=== PATIENT | male | born 1935 | race Caucasian/White ===

== ENCOUNTER 2019-04-05 14:50 | Inpatient (IN) ==
[2019-04-05 15:25] LABS: BASO# 0.01 X1000 (0.0-0.2); BASO% 0.1 % (0.0-0.8); EOS# 0.06 X1000 (0.0-0.7); EOS% 0.9 % (0.0-10.0); HEMATOCRIT 35.6 % (42.0-52.0); HEMOGLOBIN 12.1 g/dL (14.0-18.0); IMM GRAN# 0.01 X1000 (0.0-0.04); IMM GRAN% 0.1 % (0.0-0.5); LYMPH# 0.77 X1000 (1.2-3.4); LYMPH% 11.1 % (20.5-51.1); MCH 30.1 PG (27-31); MCV 88.6 FL (81-99); MONO# 0.65 X1000 (0.11-0.59); MONO% 9.4 % (1.7-9.3); NEUT# 5.44 X1000 (1.4-6.5); NEUT% 78.4 % (42.2-75.2); PLT 175 X1000 (130-400); RBC 4.02 XMIL (4.7-6.1); RDW 13.1 % (11.5-14.5); WBC 6.94 X1000 (4.8-10.8)
[2019-04-05 15:31] LABS: INFLUENZA A NEGATIVE (NEGATIVE); INFLUENZA B NEGATIVE (NEGATIVE)
[2019-04-05 15:53] LABS: ALBUMIN 3.9 g/dL (3.5-5.0); CREATININE 1.2 mg/dL (0.7-1.2); POTASSIUM 4.1 mmol/L (3.5-5.1); TOTAL BILIRUBIN 0.7 mg/dL (0.20-1.00); TOTAL PROTEIN 6.7 g/dL (6.3-8.3)
--- NOTE | 2019-04-05 16:04 | Diag Imaging Result Doc PS360 ---
EXAM: CT HEAD W/O CONTRAST 04/05/2019 HISTORY: confusion TECHNIQUE: This exam was performed using automated exposure control, adjustment of mA or kV according to patient size, and/or use of iterative reconstruction technique. COMMENT: There are no previous studies. There are calcifications in the vertebral and internal carotid arteries bilaterally. There are some calcifications in the basal ganglia. There is a moderate degree of cerebral atrophy. There is ill-defined lucency in the periventricular white matter both hemispheres and in the external capsule regions. There is a lacunar lucency present in the right duran radiata. There is no evidence of mass effect bleed or abnormal extra-axial fluid collection. The visualized paranasal sinuses are clear. The calvarium is intact. IMPRESSION: Chronic ischemic changes. No evidence of acute disease. Electronically signed by Ruel Mcgovern 04/05/2019 4:01 PM
--- NOTE | 2019-04-05 16:13 | Diag Imaging Result Doc PS360 ---
EXAM: CHEST-2 VIEWS 04/05/2019 HISTORY: cough TECHNIQUE: PA and lateral chest COMMENT: There are sternotomy wires. The inspiration is suboptimal. There is no evidence of acute pulmonary disease. Heart size is enlarged. IMPRESSION: Cardiomegaly. Electronically signed by Ruel Mcgovern 04/05/2019 4:10 PM
[2019-04-05] MEDS ORDERED: NS 1,000 ML IV ONE ×2 (16:30→20:03)
--- NOTE | 2019-04-05 18:12 | EKG Report ---
Test Performed on : 04/05/2019 3:02:43 PM Test Reason : weakness Blood Pressure : / mmHG Vent. Rate : 070 BPM Atrial Rate : 070 BPM P-R Int : 224 ms QRS Dur : 094 ms QT Int : 388 ms P-R-T Axes : 037 -07 -07 degrees QTc Int : 419 ms Sinus rhythm. with 1st degree AV block. Incomplete right bundle branch block Nonspecific T wave abnormality Abnormal ECG When compared with ECG of 28-NOV-2009 17:12, CO interval has increased Incomplete right bundle branch block is now present Unconfirmed Result
[2019-04-05 18:41] LABS: UR EPITHELIAL CELLS <10 /HPF (<10); URINE BACTERIA NEGATIVE /HPF; URINE RBC TNTC /HPF (<10); URINE SOURCE CATH; URINE WBC <10 /HPF (<10)
[2019-04-05] MEDS ORDERED: ZOSYN 3.375 GM in NS 50 ML IV ONE (18:42)
[2019-04-05 18:45] LABS: COLOR ORANGE
[2019-04-05 18:46] LABS: BILIRUBIN URINE NEGATIVE (NEGATIVE); BLOOD URINE MODERATE (NEGATIVE); GLUCOSE URINE NEGATIVE (NEGATIVE); KETONE URINE TRACE mg/dL (NEGATIVE); PROTEIN URINE 30 mg/dL (NEGATIVE); TURBIDITY URINE HAZY (CLEAR); UROBILINOGEN URINE NORMAL (NORMAL)
--- NOTE | 2019-04-05 18:46 | PROVIDER DOCUMENTATION ---
This chart was entered by Mita Silvestre Scribe, acting as scribe for Paul Arana MD. HPI-General Adult - General Chief Complaint: Weakness Stated Complaint: weakness Time Seen by Provider: 04/05/19 15:00 Source: patient, family ( and son) Allergies/Adverse Reactions: Patient Allergies Allergy/AdvReac Type Severity Reaction Status Date / Time morphine Allergy Unknown Verified 04/05/19 14:57 Home Medications: Home Medication List Medication Instructions Recorded Confirmed Last Taken Type Aspirin 81 mg PO DAILY 04/02/19 04/05/19 Unknown History Atorvastatin Calcium [Lipitor] 40 mg PO DAILY 04/02/19 04/05/19 Unknown History Cholecalciferol (Vitamin D3) 4,000 units PO DAILY 04/02/19 04/05/19 Unknown History [Vitamin D3] Hydrochlorothiazide 12.5 mg PO DAILY 04/05/19 04/05/19 Unknown History - History of Present Illness -Gen Adult Nature of Presenting Problems: 83yom presents to ED by EMS cc fever, cough and AMS according to and son who are at bedside. Son reports pt fell 04/02/2019, came to ED for injuries and all checked out ok but pt mental state has declined since the fall. reports pt has been getting more weak since the fall. Pt is A&Ox3 and denies pain upon exam. Pt has no dx hx of dementia. Location of Pain/Injury: reports: none Pain Radiation: reports: no radiation Quality of Pain: reports: none Severity: reports: mild, moderate Onset/Duration: reports: 3 days ago Timing: reports: changing over time Context/Activities at Onset: reports: recent trauma history (fell on 04/02/2019) Modifying Factors: improves with: nothing Associated Symptoms: reports: cough, fatigue, fever/chills, weakness Similar Symptoms Previously?: No Recently seen or treated by another doctor?: Yes (seen in ED 04/02/2019) Review of Systems - Adult - REVIEW OF SYSTEMS - ADULT ROS:: ROS per family ( and son) Constitutional: reports: see HPI, fever, fatique. denies: chills Eyes: reports: no symptoms reported Ears, Nose, Mouth & Throat: reports: no symptoms reported Cardiovascular: reports: no symptoms reported Respiratory: reports: see HPI, cough. denies: shortness of breath, wheezing Gastrointestinal: reports: see HPI. denies: diarrhea, nausea, vomiting Genitourinary: reports: see HPI. denies: dysuria, hematuria Musculoskeletal: reports: no symptoms reported Integumentary: reports: no symptoms reported Neurological: reports: see HPI, other (AMS) Psychiatric: reports: no symptoms reported Endocrine: reports: no symptoms reported Hematologic/Lymphatic: reports: no symptoms reported Allergic/Immunologic: reports: no symptoms reported All Other Systems: Reviewed and Negative Past History - Adult - PAST MEDICAL HISTORY-ADULT Review of Records: reports: Old Records Reviewed, Nursing Assessment Review, Me dications Reviewed, Social history reviewed & non-contributory. Major Childhood Illnesses: reports: denies history Cardiovascular: reports: denies history Respiratory: reports: denies history Gastrointestinal: reports: denies history Obstetrical/Gynecological: reports: denies history Genitourinary: reports: denies history Musculoskeletal: reports: denies history Neurological: reports: denies history Endocrine/Immune: reports: denies history Other Conditions: reports: denies history - IMMUNIZATION STATUS Childhood Immunizations: See Nurse Assessment Flu Vaccine: See Nurse Assessment - FAMILY HISTORY Family History: reviewed, not pertinent - SOCIAL HISTORY Smoking: denies Physical Exam-General - PHYSICAL EXAM-ADULT Initial Vital Signs Reviewed: Yes - CONSTITUTIONAL General Appearance: appears well, alert, no apparent distress. negative: anxious, combative - EYES Eyes: PERRL/EOMI, pink conjunctivae. negative: photophobia - HEAD, EARS, NOSE, MOUTH & THROAT HENMT: normocephalic/atraumatic, moist mucous membranes, normal ENT inspection, hearing deficit. negative: angioedema - NECK Neck: non-tender, supple. negative: C-spine tenderness - RESPIRATORY Respiratory: chest non-tender, lungs clear, normal breath sounds, no pleuratic chest pain, no respiratory distress, no accessory muscle use. negative: crackles, rales, rhonchi, stridor, wheezing - CARDIOVASCULAR Cardiovascular: normal peripheral pulses, regular rate, rhythm, no edema, no gal lop, no JVD, no murmur. negative: bradycardia, tachycardia - GASTROINTESTINAL (ABDOMEN) Abdominal Exam: normal bowel sounds, non tender, soft. negative: guarding, rigid - LYMPHATIC Lymphatic: no adenopathy. negative: enlargement, striations - MUSCULOSKELETAL Extremity: normal range of motion, non-tender, normal inspection, no calf tenderness, normal capillary refill, pelvis stable. negative: deformity, swelling, tenderness - SKIN Integumentary: normal color, normal turgor, warm/dry. 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 negative: facial droop, focal weakness - PSYCHIATRIC Psych/Mental Status: normal mood/affect, oriented x 3. negative: anxious, di sheveled Progress - PLAN OF CARE/RESULTS Progress/Plan/Lab Results: Vital Signs - 8 hr 04/05/19 14:52 Temperature 100.3 F H Pulse Rate 74 Respiratory Rate 14 Blood Pressure 150/78 O2 Sat by Pulse Oximetry 96 Laboratory Results - last 24 hr 04/05/19 15:15 WBC 6.94 RBC 4.02 L Hgb 12.1 L Hct 35.6 L MCV 88.6 MCH 30.1 MCHC 34.0 RDW Std Deviation 13.1 Plt Count 175 MPV 10.0 Immature Gran % (Auto) 0.1 Neut % (Auto) 78.4 H Lymph % (Auto) 11.1 L Ashley % (Auto) 9.4 H Eos % (Auto) 0.9 Baso % (Auto) 0.1 Immature Gran # (Auto) 0.01 Neut # (Auto) 5.44 Lymph # (Auto) 0.77 L Ashley # (Auto) 0.65 H Eos # (Auto) 0.06 Baso # (Auto) 0.01 Orders Category Date Time Status CBC WITH ELECTRONIC DIFF [HEME] Stat Lab 04/05/19 15:15 Completed COMPREHENSIVE METABOLIC PANEL [CHEM] Stat Lab 04/05/19 15:15 Received Flu [INFLUENZA SCREEN PL] Stat Lab 04/05/19 14:58 Received URINALYSIS [URINALYSIS] Stat Lab 04/05/19 15:04 Uncollected Generalized Adult Illness >60 Stat Oth 04/05/19 15:03 Ordered EKG [EKG] Stat Ther 04/05/19 15:04 Ordered Result Diagrams: 04/05/19 15:15 04/05/19 15:15 - EKG 1 Time of EKG reading by physician:: 15:02 EKG Read and Signed by:: Paul Arana EKG Interpretation (*Must complete 3 of following elements*): Abnormal (nonspecific T wave abnormality) Rate: 70 Rhythm: sinus w/ 1st degree AV block QRS: RBB (incomplete) TN Interval: normal - XRAY 1 XRAY: Bilateral XRAY Study: Chest Impression: See EMR Report (IMPRESSION: Cardiomegaly. Electronically signed by Ruel Mcgovern 04/05/2019 4:10 PM) - CT/MRI 1 CT Study: Head Impression: See EMR Report (IMPRESSION: Chronic ischemic changes. No evidence of acute disease. Electronically signed by Ruel Mcgovern 04/05/2019 4:01 PM) - CONSULTS/PCP/HOSPITALIST Notification #1 *Consult/PCP/Hospitalist*: Dr. Centeno Time Discussed: 16:24 Consult Disposition: Will see in ED Departure - Departure Date of Disposition Decision: 04/05/19 Time of Disposition Decision: 18:45 DIAGNOSIS: Fever, Delirium Disposition: ADMITTED INPATIENT 09 Certified Medical Emergency: Emergent Condition: Stable Referrals and Follow-Ups: Gray Monroy DO [Primary Care Provider] - - Critical Care Note This patient required my direct & personal management of CC.: No Attestation - Physician/ JAMES Attestation Patient care was provided by Advanced Practice Provider:: No The physician spent face to face time with patient:: Yes Advanced Practice Provider documentation review:: Supervising physician onsite and consulted in the evaluation and care of this patient. The physician did have a face to face encounter with the patient. This chart was documented by the indicated scribe, (Mita Silvestre Scribe) and accurately reflects the services I performed and decisions made by me, Paul Arana MD, as attested by the provider's signature.
[2019-04-05 18:47] LABS: LEUKOCYTES URINE NEGATIVE (NEGATIVE); NITRITE URINE NEGATIVE (NEGATIVE)
[2019-04-05] MEDS: ZOSYN 3.375 GM in NS 50 ML IV SCH (18:54)
[2019-04-05] MEDS ORDERED: ZOSYN 2.25 GM in NS 50 ML IV SCH (19:00)
[2019-04-06] MEDS: ZOSYN 3.375 GM in NS 50 ML IV SCH ×4 (00:40→23:30)
[2019-04-06] MEDS: TYLENOL PR PRN ×2 (00:53→06:21)
[2019-04-06] MEDS ORDERED: VANCOMYCIN IV PER PHARMACY MISC SCH (08:00)
[2019-04-06] MEDS ORDERED: DUONEB (A & A) INH PRN ×2 (08:02→10:36)
[2019-04-06 08:50] LABS: BASO# 0.02 X1000 (0.0-0.2); BASO% 0.2 % (0.0-0.8); HEMOGLOBIN 11.9 g/dL (14.0-18.0); IMM GRAN# 0.02 X1000 (0.0-0.04); IMM GRAN% 0.2 % (0.0-0.5); LYMPH# 0.39 X1000 (1.2-3.4); LYMPH% 3.6 % (20.5-51.1); MCV 88.2 FL (81-99); MONO# 1.01 X1000 (0.11-0.59); MONO% 9.4 % (1.7-9.3); MPV 9.8 FL (7.4-10.4); NEUT# 9.32 X1000 (1.4-6.5); NEUT% 86.6 % (42.2-75.2); PLT 167 X1000 (130-400); RBC 3.97 XMIL (4.7-6.1); RDW 13.1 % (11.5-14.5); WBC 10.76 X1000 (4.8-10.8)
[2019-04-06] MEDS ORDERED: VANCOMYCIN 2,000 MG in NS 500 ML IV ONE (09:00)
[2019-04-06] MEDS ORDERED: MUCOMYST 20% INH ONE (09:03)
[2019-04-06 09:08] LABS: ALBUMIN 3.7 g/dL (3.5-5.0); CALCIUM 8.7 mg/dL (8.8-10.2); CREATININE 1.3 mg/dL (0.7-1.2); POTASSIUM 3.9 mmol/L (3.5-5.1); TOTAL BILIRUBIN 1.1 mg/dL (0.20-1.00); TOTAL PROTEIN 6.5 g/dL (6.3-8.3)
[2019-04-06] MEDS: ASPIRIN PO SCH (10:09)
[2019-04-06] MEDS: HYDROCHLOROTHIAZIDE PO SCH (10:09)
[2019-04-06] MEDS: TAMIFLU PO SCH (10:10)
[2019-04-06] MEDS: VITAMIN D PO SCH (10:10)
[2019-04-06 10:14] LABS: LYMPHS 1 % (21-51); MONO 10 % (1-9); SEGS 86 % (42-75)
[2019-04-06 10:15] LABS: LARGE PLATELETS OCCASIONAL
[2019-04-06] MEDS ORDERED: DUONEB (A & A) INH SCH (11:30)
--- NOTE | 2019-04-06 13:32 | PROGRESS NOTE ---
DATE: 04/06/2019 SUBJECTIVE: Patient really has no improvement. He is calm. PHYSICAL: Vital Signs: Reviewed, temperature 100.1 degrees, pulse 90, respiratory rate 18, BP 157/90. General: Patient is awake, he is calm. He is in no respiratory distress. HEENT: Normocephalic. Neck: Supple. CV: Regular rate. Chest: Clear. No crackles, no wheezing. Abdomen: Soft, nondistended. Extremities: No focal changes. He has no edema. Neuro: Unable to assess as patient does not answer questions or follow commands. ASSESSMENT: 1. Febrile illness. Expect that he has urinary tract infection. Urine culture, blood cultures, sputum culture are pending. We are going to continue antibiotics. 2. Dementia with worsening mental status and failure to thrive. Lengthy discussion with the son and the regarding his current condition and the fact that he has been dwindling over the last several months. Discussed that hopefully the infection will resolve and he will return back to where he was a week ago, which was still worsening mental status, still decreased alertness, decreased activity. 3. Do not resuscitate. Discussed with the family. They do not wish to have a percutaneous endoscopic gastrostomy tube placed or have him placed on a ventilator and do desire him to stay comfortable. cc: Clarence Baig MD
--- NOTE | 2019-04-06 13:53 | HISTORY AND PHYSICAL ---
CHIEF COMPLAINT: Generalized weakness. HISTORY OF PRESENT ILLNESS: Patient is an 83-year-old male who presented to the ER with his son and . The entire history is gained from the son while in the ER. Mr. Toledo is unable to answer questions due to confusion. His son notes that he has had a significant pattern changer the past 3 or 4 days. He started having fever for a day or two. States that he has been dwindling for the past 4 or 5 months. Does have a known history of dementia and over the summer, was mowing the father's yard as well as the son's yard. However, since November, he has had increasing difficulty with confusion, disorientation, increasing difficulty with ambulation. He has had decreased oral intake. He was noted to have fallen on the . Presented to the ER. Had no fractures. Everything appeared to be normal. They took him home. However, since going home, he has not been the same. He has not been getting up. He has had decreased intake and started having fever yesterday. ALLERGIES: Morphine. MEDICATIONS: Aspirin 81, Lipitor 40, vitamin D, hydrochlorothiazide 12.5. REVIEW OF SYSTEMS: Unobtainable other than as noted above. They deny any knowledge of GI or issues, any skin rashes, any cough or congestion. Denied any knowledge of chest pain or focal weakness. FAMILY HISTORY: Noncontributory. SOCIAL HISTORY: He has been for over 60 years. Does not drink. Long-term preacher but stopped preaching several years ago. Does not drink alcohol. PHYSICAL EXAMINATION: VITAL SIGNS: Reviewed. Temperature 100.3 degrees, pulse 84, respiratory rate 14, BP 150/78, saturating 96% on room air. GENERAL: Patient is awake, pleasant, in no distress. HEENT: Normocephalic. NECK: Supple. CARDIOVASCULAR: Regular rate. CHEST: Clear. No crackles, no rhonchi. ABDOMEN: Soft, nondistended, nontender. EXTREMITIES: Moves all extremities. NEUROLOGIC: Unable to assess as he does not follow commands but he has no focal weakness. ASSESSMENT: 1. Febrile illness. 2. Mild hyperglycemia. 3. Hypertension. 4. Dementia with recent worsening of his mental status. PLAN: We are going to admit him to the hospital. IV fluids, antibiotics. We will follow his breathing. Check urine and blood cultures as well as a sputum culture if possible, and we will follow. cc: Clarence Baig MD
[2019-04-06] MEDS: NS 1,000 ML IV SCH (14:00)
[2019-04-06] MEDS: MORPHINE IV PRN ×2 (15:32→20:30)
[2019-04-07] MEDS: LIPITOR PO SCH ×2 (02:57→20:52)
[2019-04-07] MEDS: TAMIFLU PO SCH ×3 (02:58→20:52)
[2019-04-07] MEDS: NS 1,000 ML IV SCH (05:09)
[2019-04-07] MEDS: ZOSYN 3.375 GM in NS 50 ML IV SCH ×4 (05:09→23:11)
[2019-04-07 06:02] LABS: HEMATOCRIT 33.8 % (42.0-52.0); IMM GRAN# 0.02 X1000 (0.0-0.04); IMM GRAN% 0.2 % (0.0-0.5); LYMPH# 0.71 X1000 (1.2-3.4); MCH 29.2 PG (27-31); MCHC 32.5 g/dL (33-37); MCV 89.7 FL (81-99); MONO% 7.9 % (1.7-9.3); MPV 10.6 FL (7.4-10.4); NEUT# 7.42 X1000 (1.4-6.5); NEUT% 83.9 % (42.2-75.2); PLT 155 X1000 (130-400); RBC 3.77 XMIL (4.7-6.1); RDW 13.5 % (11.5-14.5); WBC 8.85 X1000 (4.8-10.8)
[2019-04-07 06:05] LABS: ALBUMIN 3.2 g/dL (3.5-5.0); CALCIUM 8.7 mg/dL (8.8-10.2); CREATININE 1.7 mg/dL (0.7-1.2); MAGNESIUM 1.8 mg/dL (1.5-2.7); POTASSIUM 3.8 mmol/L (3.5-5.1); TOTAL BILIRUBIN 0.6 mg/dL (0.20-1.00); TOTAL PROTEIN 5.8 g/dL (6.3-8.3)
[2019-04-07 09:19] LABS: ANISOCYTOSIS 2+; BANDS 8 % (0-1); LYMPHS 11 % (21-51); MONO 5 % (1-9); SEGS 76 % (42-75)
[2019-04-07] MEDS: ASPIRIN PO SCH (09:39)
[2019-04-07] MEDS: HYDROCHLOROTHIAZIDE PO SCH (09:39)
[2019-04-07] MEDS: VITAMIN D PO SCH (09:39)
[2019-04-07] MEDS: MORPHINE IV PRN ×3 (09:56→21:25)
[2019-04-07] MEDS: D5 1/2 NS 1,000 ML IV SCH ×2 (09:56→23:11)
[2019-04-07] MEDS: ZOFRAN IV PRN (18:32)
--- NOTE | 2019-04-07 19:10 | PROGRESS NOTE ---
DATE: 04/07/2019 SUBJECTIVE: Patient has no new complaints. Still is not awake, alert. Still is not attempting to eat or drink. PHYSICAL EXAMINATION: Vital signs: Temperature 98.6 degrees, pulse 66, respiratory rate 18, BP 151/59. General: Patient is in no respiratory distress. He is lying flat on the bed. He has been afebrile. He currently is calm. HEENT: Normocephalic. Neck: Supple. Cardiovascular: Regular rate. Chest: Positive rhonchi. No crackles. No wheezing. Abdomen: Soft, nondistended. Extremities: No edema. He is noted to move all extremities. Neurologic: Unable to assess. He does not follow commands. ASSESSMENT: 1. Febrile illness. 2. Mild hyperglycemia. 3. Hypertension. 4. Dementia, with recent worsening. 5. Adult failure to thrive. 6. Do Not Resuscitate level 1. PLAN: 1. We are going to continue patient in the hospital. 2. We are going to continue fluids and breathing treatments. 3. Continue antibiotics. 4. His creatinine has risen from 1.2 to 1.7, so we are going to stop his vancomycin and will follow. So far, his blood and urine cultures are negative. The patient's entire family was in the room this afternoon. Discussed with them 35 minutes the current plan. Discussed Do Not Resuscitate Code status, and discussed likely direction of his care. They all agree that he is Do Not Resuscitate. cc: Clarence Baig MD
[2019-04-07] MEDS ORDERED: VANCOMYCIN 1,600 MG in NS 250 ML IV SCH (21:00)
[2019-04-08] MEDS: MORPHINE IV PRN ×3 (03:25→21:30)
[2019-04-08] MEDS: ZOSYN 3.375 GM in NS 50 ML IV SCH ×4 (05:04→22:57)
[2019-04-08 07:10] LABS: EOS# 0.01 X1000 (0.0-0.7); EOS% 0.1 % (0.0-10.0); HEMATOCRIT 32.4 % (42.0-52.0); HEMOGLOBIN 10.6 g/dL (14.0-18.0); IMM GRAN# 0.01 X1000 (0.0-0.04); IMM GRAN% 0.1 % (0.0-0.5); LYMPH# 0.55 X1000 (1.2-3.4); MCH 29.4 PG (27-31); MCHC 32.7 g/dL (33-37); MCV 89.8 FL (81-99); MONO# 0.49 X1000 (0.11-0.59); MONO% 6.2 % (1.7-9.3); MPV 10.9 FL (7.4-10.4); NEUT# 6.79 X1000 (1.4-6.5); NEUT% 86.6 % (42.2-75.2); PLT 145 X1000 (130-400); RBC 3.61 XMIL (4.7-6.1); RDW 13.5 % (11.5-14.5); WBC 7.85 X1000 (4.8-10.8)
[2019-04-08 07:25] LABS: CALCIUM 8.7 mg/dL (8.8-10.2); CREATININE 1.7 mg/dL (0.7-1.2); POTASSIUM 3.7 mmol/L (3.5-5.1); TOTAL BILIRUBIN 0.6 mg/dL (0.20-1.00); TOTAL PROTEIN 5.6 g/dL (6.3-8.3)
[2019-04-08 08:18] LABS: ANISOCYTOSIS 1+; BANDS 4 % (0-1); LYMPHS 13 % (21-51); MONO 3 % (1-9); SEGS 80 % (42-75)
[2019-04-08] MEDS: ASPIRIN PO SCH (10:53)
[2019-04-08] MEDS: HYDROCHLOROTHIAZIDE PO SCH (10:53)
[2019-04-08] MEDS: TAMIFLU PO SCH ×2 (10:53→22:56)
[2019-04-08] MEDS: VITAMIN D PO SCH (10:53)
[2019-04-08] MEDS ORDERED: ATROPINE 1 % OPHTH SOLN SL PRN (11:49)
[2019-04-08] MEDS: ZOFRAN IV PRN (12:00)
[2019-04-08] MEDS: ATIVAN IV PRN (12:00)
[2019-04-08] MEDS ORDERED: OFIRMEV 1000 MG/ISOTONIC SOLN 1,000 MG/100 ML BOTTLE IV PRN (17:48)
[2019-04-08] MEDS: LIPITOR PO SCH (22:56)
[2019-04-09] MEDS: MORPHINE IV PRN ×3 (02:41→19:03)
[2019-04-09] MEDS: ZOSYN 3.375 GM in NS 50 ML IV SCH (05:40)
--- NOTE | 2019-04-09 07:49 | PROGRESS NOTE ---
DATE: 04/08/2019 SUBJECTIVE: The patient's family notes that he is awake, getting a little bit better, although he is still confused, disoriented, still states he is ready to go home. PHYSICAL EXAMINATION: Vital signs: Temperature 98 degrees, pulse 66, respiratory 15, blood pressure 151/99. General: Patient is in no respiratory distress, lying flat on the bed. He is awake. He does open his eyes to verbal stimuli. Does not respond to commands nor answer questions. HEENT: Normocephalic. Neck: Supple. Cardiovascular: Regular rate. Chest: Positive rhonchi. No wheezing. No crackles. Abdomen: Soft, nondistended. Extremities: Moves all extremities. ASSESSMENT: 1. Febrile illness of undetermined origin, likely urinary source. Continue Zosyn. 2. Mild hyperglycemia. 3. Hypertension. 4. Dementia. 5. Adult failure to thrive. 6. Do Not Resuscitate. PLAN: After a lengthy discussion, the family has decided to convert more toward comfort care. We are going to stop his IV fluids, continue his antibiotics for today and will follow. cc: Clarence Baig MD
[2019-04-09] MEDS: HYDROCHLOROTHIAZIDE PO SCH (10:43)
[2019-04-09] MEDS: ASPIRIN PO SCH (10:43)
[2019-04-09] MEDS: VITAMIN D PO SCH (10:44)
[2019-04-09] MEDS: ATIVAN IV PRN ×2 (10:44→19:03)
[2019-04-09] MEDS: ZOFRAN IV PRN ×2 (10:45→19:03)
[2019-04-09] MEDS ORDERED: NEO-SYNEPHRINE ONE (13:24)
[2019-04-09] MEDS ORDERED: DECADRON ONE (13:58)
[2019-04-09] MEDS ORDERED: OFIRMEV 1000 MG/ISOTONIC SOLN 0 MG/0 ML BOTTLE ONE (13:58)
--- NOTE | 2019-04-09 22:25 | PROGRESS NOTE ---
DATE: 04/09/2019 SUBJECTIVE: The patient himself is actually awake. He is verbalizing, but does not respond to questions or answer commands. OBJECTIVE: Vital Signs: T-max 102 degrees, pulse 95, respiratory rate 18, BP 111/46. General: Patient is awake but does not answer questions nor follow commands. He did talk to the yesterday for a few seconds. HEENT: Normocephalic. Neck: Supple. Cardiovascular: Regular rate. Chest: Clear. Abdomen: Soft. Extremities: Moves all extremities. ASSESSMENT: 1. Febrile illness. 2. Hyperglycemia. 3. Hypertension. 4. Dementia with worsening mental status. 5. Do Not Resuscitate. 6. Adult failure to thrive. PLAN: The patient is highly unlikely to survive this current event. He is refusing to eat or drink. The family have declined parenteral nutrition noting that Mr. Toledo would not want that. At this point, they have discussed stopping antibiotics, which we will be glad to do and change his vitals to every shift while awake. We will begin discussion with hospice care and end of life. cc: Clarence Baig MD
[2019-04-10] MEDS: LIPITOR PO SCH (01:26)
[2019-04-10] MEDS: MORPHINE IV PRN ×3 (05:48→20:43)
[2019-04-10] MEDS: ATIVAN IV PRN ×3 (05:48→20:43)
[2019-04-10] MEDS: ZOFRAN IV PRN ×3 (05:49→20:43)
[2019-04-10] MEDS: ASPIRIN PO SCH (13:43)
[2019-04-10] MEDS: VITAMIN D PO SCH (13:44)
[2019-04-10] MEDS: HYDROCHLOROTHIAZIDE PO SCH (13:44)
--- NOTE | 2019-04-10 22:04 | PROGRESS NOTE ---
DATE: 04/10/2019 SUBJECTIVE: The patient himself has no complaints. Family notes that he does have some labored breathing at times and then has cooled off with morphine. PHYSICAL EXAM: Vital Signs: Temp 99 degrees, pulse 67, respiratory rate 18, BP 127/64. General: Patient is in no distress. He is lying in bed. Does have a Ventimask on. HEENT: Normocephalic. Neck: Supple. Cardiovascular: Regular rate. Chest: Decreased but equal. No crackles. No wheezing. Abdomen: Soft. Nondistended. ASSESSMENT: 1. DNR level 1. 2. Comfort care measures. 3. Febrile illness of undetermined origin. 4. Hypertension. 5. Dementia. PLAN: We will continue comfort care. The patient will not survive this current event. Family is aware and they desire comfort care measures only. cc: Clarence Baig MD
[2019-04-11] MEDS: LIPITOR PO SCH (03:58)
[2019-04-11] MEDS: ATIVAN IV PRN ×2 (08:08→15:33)
[2019-04-11] MEDS: ZOFRAN IV PRN ×2 (08:09→15:33)
[2019-04-11] MEDS: MORPHINE IV PRN ×2 (08:09→15:33)
[2019-04-11] MEDS: ASPIRIN PO SCH (08:16)
[2019-04-11] MEDS: VITAMIN D PO SCH (08:17)
[2019-04-11] MEDS: HYDROCHLOROTHIAZIDE PO SCH (08:17)
--- NOTE | 2019-04-12 03:14 | PROGRESS NOTE ---
DATE: 04/11/2019 SUBJECTIVE: The patient himself has no complaints. He does get agitated at times. Morphine and Ativan seem to help. PHYSICAL EXAMINATION: Vital signs: Temperature 98.4 degrees, pulse 72, respiratory 20, BP 162/61, currently on non-rebreather mask. HEENT: Normocephalic. Neck: Supple. Cardiovascular: Regular rate. Chest: Clear, nonlabored. No wheezing. Positive rhonchi. Abdomen: Soft, nondistended. Extremities: Moves all extremities. ASSESSMENT: 1. Do Not Resuscitate. 2. Comfort care measures. 3. Dementia with recent worsening mental status. 4. Febrile illness. He has been afebrile for the past 3 days. PLAN: We are going to continue patient in the hospital. Continue comfort care measures. We will follow clinically. Further orders as needed. cc: Clarence Baig MD
[2019-04-12] MEDS: MORPHINE IV PRN (08:35)
[2019-04-12] MEDS: ZOFRAN IV PRN (08:35)
[2019-04-12] MEDS: ATIVAN IV PRN (08:35)
[2019-04-12] MEDS ORDERED: BENADRYL IV ONE (18:01)
--- NOTE | 2019-04-12 19:03 | PROGRESS NOTE ---
DATE: 04/12/2019 SUBJECTIVE: The patient himself has no complaints. Family is at the bedside. PHYSICAL EXAMINATION: Temperature 97 degrees, pulse 74, respiratory rate 18, BP 157/97. General: Patient is in no respiratory distress. He is lethargic, does not answer questions or follow commands. Cardiovascular: Regular rhythm and rate. Chest: Clear. Abdomen: Soft. ASSESSMENT: 1. Do Not Resuscitate/Allow Natural . 2. Comfort care. 3. Dementia. PLAN: We are going to continue patient in the hospital, continue comfort care, and do not expect him to survive this current hospitalization. cc: Clarence Baig MD
[2019-04-13] MEDS: MORPHINE IV PRN ×4 (02:27→20:01)
[2019-04-13] MEDS: ATIVAN IV PRN ×4 (02:28→20:02)
[2019-04-13] MEDS: ZOFRAN IV PRN ×2 (07:56→16:55)
--- NOTE | 2019-04-13 18:16 | PROGRESS NOTE ---
DATE: 04/13/2019 SUBJECTIVE: The patient, himself, has no complaints. He does appear calm. He is not restless. He does not appear in pain. The family is at the bedside. PHYSICAL EXAM: Vital signs: Temperature 93 degrees, pulse 76, respiratory rate 18, BP 165/87. General: Patient is in no distress. HEENT: Normocephalic. Neck: Supple. Cardiovascular: Regular rate. Chest: Clear. Positive rhonchi. No wheezing. Abdomen: Soft. Extremities: He has edema bilaterally. ASSESSMENT: 1. Do Not Resuscitate, end of life, comfort care. 2. Hypertension. 3. Dementia. PLAN: We are going to continue comfort care. Continue medications as needed. Family understands and desires to continue. cc: Clarence Baig MD
[2019-04-14 08:00] VITALS: BP 121/60
[2019-04-14] MEDS: ATIVAN IV PRN (08:00)
[2019-04-14] MEDS: MORPHINE IV PRN (08:00)
--- NOTE | 2019-04-15 10:03 | DISCHARGE SUMMARY ---
ADMISSION DATE: 04/07/2019 DISCHARGE DATE: 04/14/2019 DISCHARGE DIAGNOSES: 1. The patient was pronounced at 8:30 on 04/14/2019 secondary to acute hypoxic respiratory failure. His oxygen saturations dropped to around 56. 2. Febrile illness, likely viral. All his cultures were negative. 3. Dementia. 4. Hypertension. 5. High cholesterol. CONSULTATIONS: None. PROCEDURES: None. BRIEF HOSPITAL COURSE: The patient is an 83-year-old male who presented to the hospital secondary to a febrile illness. He was confused, more weak than usual. He had been refusing to eat or drink. He had had fever for 2 days prior to coming in, and for 2 days while he was in the hospital. He was initially placed on antibiotics, but did not improve his confusion and disorientation. The family decided to make him DO NOT RESUSCITATE. Over the next day or two, they also decided comfort care, and we stopped his antibiotics, stopped his fluids, and continued to treat him comfortably. The patient's family was at the bedside when he passed on 04/14/2019. cc: Clarence Baig MD
== END 2019-04-14 08:30 | disposition expired | DRG 865 ==
LOC: P.ED 14:50 → P.MEDSURG 14:50
PROVIDERS: ATTEND Family Medicine